=== PATIENT | male | born 1940 | race Two or more races ===

== ENCOUNTER 2018-06-06 18:32 | Emergency (ER) | payer OTHER, MEDICAID ==
[~2018-06-06] VITALS: Ht 162.6 cm; Wt 81.6 kg
[~2018-06-06 18:32] MED LIST: LONOX PO; Lisinopril PO; PAROXETINE PO; amlodipine PO; furosemide PO; gabapentin PO; tramadol PO
[2018-06-06 19:53] VITALS: BP 142/80
== END 2018-06-06 19:58 | disposition home or self-care (01) ==
LOC: EDBD 18:32 → EDUNIT# 18:32 → ER 18:43
DX: F10.129 Alcohol abuse with intoxication, unspecified (principal); E11.9 Type 2 diabetes mellitus without complications; E78.5 Hyperlipidemia, unspecified; I10 Essential (primary) hypertension; R41.82 Altered mental status, unspecified; I25.2 Old myocardial infarction; I48.91 Unspecified atrial fibrillation; Z88.0 Allergy status to penicillin; Z88.6 Allergy status to analgesic agent
CPT/HCPCS: 36415; 70450; 80320

== ENCOUNTER 2021-02-28 19:43 | Inpatient (IN) | payer OTHER, MEDICAID ==
[~2021-02-28] VITALS: Ht 165.1 cm; Wt 73.0 kg
[2021-02-28] MEDS ORDERED: ONDANSETRON HCL 4 MG/2 ML VIAL IV ONE (20:30)
[2021-02-28 21:03] LABS: Basophils # (auto) 0 10 ^3/uL (0-0.2); Eosinophils # (auto) 0 10 ^3/uL (0-0.8); Hemoglobin 14.3 g/dL (13.5-17.5); Monocytes # (auto) 0.3 10 ^3/uL (0-1.3); Neutrophils # (auto) 2.7 10 ^3/uL (1.6-8.6); Nucleated Red Blood Cells % 0.2 %; White Blood Cell 4.8 10^3/uL (4.4-10.8)
[2021-02-28 21:05] LABS: Basophils % (auto) 0.6 % (0.0-2.0); Hematocrit 41.4 % (41.0-53.0); Lymphocytes # (auto) 1.8 10 ^3/uL (0.4-5.4); Lymphocytes % (auto) 36.7 % (10.0-50.0); Mean Corpuscular Hemoglobin 35.9 pg (28.0-32.0); Mean Corpuscular Hgb Conc. 34.5 g/dL (32.0-36.0); Mean Corpuscular Volume 103.9 fL (80.0-100.0); Neutrophils % (auto) 55.7 % (37.0-80.0); Red Blood Cells 3.98 10^6/uL (4.5-5.90); Red Cell Distribution Width 14.8 % (11.8-14.3)
[2021-02-28 21:20] LABS: Albumin 3.2 g/dL (3.4-5.0); Anion Gap 16 (5-15); Blood Urea Nitrogen 6 mg/dL (7-18); Calcium 7.1 mg/dL (8.5-10.1); Carbon Dioxide 20 mmol/L (21-32); Chloride 102 mmol/L (98-107); Glucose 145 mg/dL (74-106); Magnesium 1.1 mg/dL (1.6-2.6); Potassium 3.7 mmol/L (3.5-5.1); Sodium 138 mmol/L (136-145)
[2021-02-28 21:22] LABS: Lactic Acid w/Reflex 6.9 mmol/L (0.4-2.0)
[2021-02-28 21:26] LABS: Alanine Aminotransferase 90 U/L (16-61); Alkaline Phosphatase 143 U/L (45-117); Aspartate Aminotransferase 176 U/L (15-37); BUN/Creatinine Ratio 6.1; Bilirubin, Total 0.8 mg/dL (0.2-1.0); GFR African American 94 mL/min; GFR Non-African American 78 mL/min; INR 1.08 (0.9-1.15); Total Protein 6.9 g/dL (6.4-8.2)
[2021-02-28] MEDS ORDERED: SODIUM CHLORIDE 0.9% 1,000 ML IV ONE ×2 (22:00→23:45)
[2021-02-28] MEDS ORDERED: PIPERACILLIN-TAZOB 3.375GM 100 ML IV ONE (22:00)
[2021-02-28] MEDS ORDERED: VANCOMYCIN 1GM/250ML 250 ML IV ONE (22:00)
[2021-02-28] MEDS ORDERED: IOHEXOL 300 MG/ML 100ML BOTTLE IJ ONE (22:09)
[2021-02-28] MEDS ORDERED: fentaNYL CITRATE 100 MCG/2 ML VL IV ONE (22:30)
[2021-02-28] MEDS ORDERED: METOCLOPRAMIDE HCL 5MG/ml INJ 2ml VIAL IV ONE (22:30)
[2021-02-28] MEDS ORDERED: DexAMETHasone INJECTION 10 MG in D5W 5% 50 ML IV ONE (22:45)
[2021-02-28] MEDS ORDERED: ONDANSETRON HCL 4 MG/2 ML VIAL IV PRN (23:45)
[2021-02-28] MEDS ORDERED: DEXTROSE (50%) 50ML SYRG IV ONE (23:45)
[2021-03-01] VITALS (7 sets, daily range): BP systolic 131–150; BP diastolic 66–90
[2021-03-01] MEDS: ACCU-CHEK COMFORT CURVE STRIP VI SCH ×5 (00:23→20:08)
[2021-03-01] MEDS ORDERED: DexAMETHasone SOD PHOS 4 MG/1ML SDV INJ ONE (00:36)
[2021-03-01] MEDS: InsuLIN REG 1unit/0.01ml Soln (100units/ml) SC SCH ×5 (02:49→20:08)
[2021-03-01] MEDS: MAGNESIUM SULFATE 1GM/100ML 100 ML IV SCH ×2 (03:34→04:44)
[2021-03-01] MEDS: ONDANSETRON HCL 4 MG/2 ML VIAL IV PRN ×4 (03:52→18:41)
[2021-03-01 05:36] LABS: Albumin 2.8 g/dL (3.4-5.0); Calcium 6.7 mg/dL (8.5-10.1); Magnesium 1.5 mg/dL (1.6-2.6); Potassium 3.8 mmol/L (3.5-5.1)
[2021-03-01 05:40] LABS: BUN/Creatinine Ratio 6.3; Bilirubin, Total 1.1 mg/dL (0.2-1.0); Total Protein 6.2 g/dL (6.4-8.2)
[2021-03-01 07:26] LABS: Basophils # (auto) 0 10 ^3/uL (0-0.2); Eosinophils # (auto) 0 10 ^3/uL (0-0.8); Hematocrit 37.8 % (41.0-53.0); Lymphocytes # (auto) 0.4 10 ^3/uL (0.4-5.4); Monocytes # (auto) 0.1 10 ^3/uL (0-1.3); Monocytes % (auto) 0.7 % (0.0-12.0); Nucleated Red Blood Cells % 0.1 %
[2021-03-01 07:27] LABS: Basophils % (auto) 0.1 % (0.0-2.0); Lymphocytes % (auto) 4.9 % (10.0-50.0); Mean Corpuscular Hgb Conc. 34.5 g/dL (32.0-36.0); Mean Corpuscular Volume 104.2 fL (80.0-100.0); Neutrophils # (auto) 7.2 10 ^3/uL (1.6-8.6); Neutrophils % (auto) 94.3 % (37.0-80.0); Red Blood Cells 3.63 10^6/uL (4.5-5.90); Red Cell Distribution Width 14.7 % (11.8-14.3); White Blood Cell 7.6 10^3/uL (4.4-10.8)
[2021-03-01] MEDS ORDERED: METF-370 PO (09:35)
[2021-03-01] MEDS ORDERED: GABA100C9 PO (09:35)
[2021-03-01] MEDS ORDERED: ASPI1TAB19 PO (09:41)
[2021-03-01] MEDS: ASPirin-EC 81 mg tab PO SCH (09:42)
[2021-03-01] MEDS: ENOXAPARIN SOD 40 MG/0.4 ML SYRINGE SC SCH (09:42)
[2021-03-01] MEDS: SODIUM CHLORIDE 0.9% 1,000 ML IV SCH ×2 (12:00→21:07)
[2021-03-01] MEDS ORDERED: SODIUM CHLORIDE 0.9% 2,000 ML IV ONE (12:00)
[2021-03-01] MEDS ORDERED: ALPRAZolam 0.25 MG TAB PO ONE (13:15)
[2021-03-01 16:21] LABS: Lactic Acid w/Reflex 4.4 mmol/L (0.4-2.0)
[2021-03-01] MEDS: metroNIDAZOLE 500MG/100ML 100 ML IV SCH ×2 (16:58→21:07)
[2021-03-01] MEDS: SUCRALFATE 1 GM/10 ML ORAL SUSP PO SCH ×2 (16:58→20:07)
[2021-03-01] MEDS: levoFLOXacin 500MG 100 ML IV SCH (18:03)
[2021-03-01 18:28] LABS: Urine Bacteria NONE SEEN /hpf (None Seen); Urine Blood Negative /uL (Negative); Urine Specific Gravity 1.007 (1.001-1.035); Urine WBC <1 /hpf (0 - 3)
[2021-03-01] MEDS: PANTOPRAZOLE 40 MG TAB PO SCH (20:08)
[2021-03-02 05:00] VITALS: BP 122/56
[2021-03-02] MEDS: SUCRALFATE 1 GM/10 ML ORAL SUSP PO SCH ×4 (05:45→21:57)
[2021-03-02] MEDS: InsuLIN REG 1unit/0.01ml Soln (100units/ml) SC SCH ×4 (05:45→22:00)
[2021-03-02] MEDS: ACCU-CHEK COMFORT CURVE STRIP VI SCH ×4 (05:46→22:10)
[2021-03-02] MEDS: metroNIDAZOLE 500MG/100ML 100 ML IV SCH ×3 (06:00→21:57)
[2021-03-02 07:29] LABS: Basophils # (auto) 0 10 ^3/uL (0-0.2); Basophils % (auto) 0.1 % (0.0-2.0); Eosinophils # (auto) 0 10 ^3/uL (0-0.8); Nucleated Red Blood Cells % 0.2 %; White Blood Cell 5.5 10^3/uL (4.4-10.8)
[2021-03-02 07:33] LABS: Hematocrit 35.8 % (41.0-53.0); Hemoglobin 12.6 g/dL (13.5-17.5); Lymphocytes # (auto) 1.1 10 ^3/uL (0.4-5.4); Lymphocytes % (auto) 20.5 % (10.0-50.0); Mean Corpuscular Hemoglobin 36.6 pg (28.0-32.0); Mean Corpuscular Hgb Conc. 35.1 g/dL (32.0-36.0); Mean Corpuscular Volume 104.4 fL (80.0-100.0); Monocytes # (auto) 0.4 10 ^3/uL (0-1.3); Monocytes % (auto) 7.1 % (0.0-12.0); Neutrophils % (auto) 72.3 % (37.0-80.0); Red Blood Cells 3.43 10^6/uL (4.5-5.90); Red Cell Distribution Width 14.5 % (11.8-14.3)
[2021-03-02 07:56] LABS: Calcium 6.5 mg/dL (8.5-10.1); Potassium 3.4 mmol/L (3.5-5.1)
[2021-03-02 08:00] VITALS: BP 117/73
[2021-03-02 08:00] LABS: BUN/Creatinine Ratio 9.2; Bilirubin, Total 1.5 mg/dL (0.2-1.0); Total Protein 6.5 g/dL (6.4-8.2)
[2021-03-02] MEDS: SODIUM CHLORIDE 0.9% 1,000 ML IV SCH ×2 (08:49→18:30)
[2021-03-02] MEDS: levoFLOXacin 500MG 100 ML IV SCH (08:49)
[2021-03-02] MEDS: ASPirin-EC 81 mg tab PO SCH (08:50)
[2021-03-02] MEDS: PANTOPRAZOLE 40 MG TAB PO SCH ×2 (08:50→21:57)
[2021-03-02] MEDS: ENOXAPARIN SOD 40 MG/0.4 ML SYRINGE SC SCH (08:50)
[2021-03-02 09:00] VITALS: BP 117/73
[2021-03-02 13:00] VITALS: BP 130/67
[2021-03-02 17:00] VITALS: BP 143/77
[2021-03-02 22:02] VITALS: BP 136/77
[2021-03-03] MEDS: SODIUM CHLORIDE 0.9% 1,000 ML IV SCH (04:00)
[2021-03-03 04:50] VITALS: BP 128/72
[2021-03-03] MEDS: metroNIDAZOLE 500MG/100ML 100 ML IV SCH (05:34)
[2021-03-03] MEDS: ACCU-CHEK COMFORT CURVE STRIP VI SCH ×2 (06:14→11:30)
[2021-03-03] MEDS: SUCRALFATE 1 GM/10 ML ORAL SUSP PO SCH (06:14)
[2021-03-03] MEDS: InsuLIN REG 1unit/0.01ml Soln (100units/ml) SC SCH ×2 (06:14→11:30)
[2021-03-03 06:59] LABS: INR 1.17 (0.9-1.15); Partial Thromboplastin Time 29.4 sec (23.0-31.2)
[2021-03-03 07:07] LABS: Potassium 3.5 mmol/L (3.5-5.1)
[2021-03-03 07:17] LABS: Albumin 2.5 g/dL (3.4-5.0); BUN/Creatinine Ratio 14.5; Calcium 6.5 mg/dL (8.5-10.1); Total Protein 5.2 g/dL (6.4-8.2)
[2021-03-03 08:00] VITALS: BP 117/73
[2021-03-03 08:30] VITALS: BP 135/71
[2021-03-03] MEDS ORDERED: MIDAZOLAM HCL 5 MG/ML-1ML VIAL ONE (09:08)
[2021-03-03] MEDS ORDERED: LIDOCAINE VISCOUS 2% 15ML UD ONE (09:08)
[2021-03-03] MEDS ORDERED: SODIUM CHLORIDE LOCK 10 ML ONE (09:08)
[2021-03-03] MEDS ORDERED: fentaNYL CITRATE 100 MCG/2 ML VL ONE (09:09)
[2021-03-03] MEDS ORDERED: diphenhdrAMINE HCL 50 MG/1 ML VL ONE (09:09)
[2021-03-03] MEDS: levoFLOXacin 500MG 100 ML IV SCH (09:12)
[2021-03-03] MEDS: PANTOPRAZOLE 40 MG TAB PO SCH (09:18)
[2021-03-03] MEDS: ASPirin-EC 81 mg tab PO SCH (09:18)
[2021-03-03] MEDS: ENOXAPARIN SOD 40 MG/0.4 ML SYRINGE SC SCH (10:00)
[2021-03-03 12:30] VITALS: BP 135/68
[2021-03-03] MEDS ORDERED: SUCR1SUS10 PO (12:59)
[2021-03-03] MEDS ORDERED: PANT40T PO (12:59)
[2021-03-03 17:00] VITALS: BP 118/65
== END 2021-03-03 17:00 | disposition home health service (06) | DRG 392 ==
LOC: EDBD 19:43 → ER 19:48 → TELE 03-01 00:10 → TELE-WESTW 03-01 01:50
PROVIDERS: ADMIT Hospitalist; ATTEND Hospitalist
PROC: 0DB68ZX Excision of Stomach, Via Natural or Artificial Opening Endoscopic, Diagnostic (ICD-10-PCS; principal; 2021-03-03 11:47)
DX: K29.70 Gastritis, unspecified, without bleeding (principal); E87.2 Acidosis; K29.80 Duodenitis without bleeding; K52.9 Noninfective gastroenteritis and colitis, unspecified; K80.20 Calculus of gallbladder without cholecystitis without obstruction; I10 Essential (primary) hypertension; E11.40 Type 2 diabetes mellitus with diabetic neuropathy, unspecified; F41.9 Anxiety disorder, unspecified; K44.9 Diaphragmatic hernia without obstruction or gangrene; K57.30 Diverticulosis of large intestine without perforation or abscess without bleeding; Z20.822 Contact with and (suspected) exposure to COVID-19; F32.9 Major depressive disorder, single episode, unspecified; E86.0 Dehydration; E11.9 Type 2 diabetes mellitus without complications; K76.0 Fatty (change of) liver, not elsewhere classified; Z80.42 Family history of malignant neoplasm of prostate; Z82.0 Family history of epilepsy and other diseases of the nervous system; Z86.73 Personal history of transient ischemic attack (TIA), and cerebral infarction without residual deficits; I25.2 Old myocardial infarction; Z88.0 Allergy status to penicillin; Z88.5 Allergy status to narcotic agent
CPT/HCPCS: 36415; 43239; 70360; 70491; 71045; 74176; 76705; 78226; 80053; 81001; 82962; 83036; 83605; 83735; 83880; 84484; 85025; 85610; 85730; 86850; 86900; 86901; 87040; 87070; 87426; 87880; 93005; 93306; 96361; 96365; 96367; 96375; G0378; J1100; J1815; J1956; J2250; J2405; J3490; J7060

== ENCOUNTER 2021-04-29 17:46 | Inpatient (IN) | payer OTHER, MEDICAID ==
[~2021-04-29] VITALS: Ht 167.6 cm; Wt 72.6 kg
[~2021-04-29 17:46] MED LIST changes: +ASPI1TAB19 PO; +GABA100C9 PO; -LONOX PO; -Lisinopril PO; +METF-370 PO; +PANT40T PO; -PAROXETINE PO; +SUCR1SUS10 PO; -amlodipine PO; -furosemide PO; -gabapentin PO; -tramadol PO
[2021-04-29] MEDS ORDERED: IBUPROFEN 600 MG TAB PO ONE (18:30)
[2021-04-29 18:42] LABS: Basophils # (auto) 0.1 10 ^3/uL (0-0.2); Eosinophils # (auto) 0.2 10 ^3/uL (0-0.8); Monocytes # (auto) 0.5 10 ^3/uL (0-1.3)
[2021-04-29 18:44] LABS: Basophils % (auto) 0.9 % (0.0-2.0); Eosinophils % (auto) 2.7 % (0.0-7.0); Hemoglobin 11.9 g/dL (13.5-17.5); Lymphocytes % (auto) 49.9 % (10.0-50.0); Mean Corpuscular Hemoglobin 34.2 pg (28.0-32.0); Mean Corpuscular Hgb Conc. 33.1 g/dL (32.0-36.0); Mean Corpuscular Volume 103.2 fL (80.0-100.0); Monocytes % (auto) 7.8 % (0.0-12.0); Neutrophils # (auto) 2.3 10 ^3/uL (1.6-8.6); Neutrophils % (auto) 38.7 % (37.0-80.0); Red Blood Cells 3.49 10^6/uL (4.5-5.90); Red Cell Distribution Width 14.8 % (11.8-14.3)
[2021-04-29 19:03] LABS: Partial Thromboplastin Time 25.4 sec (23.6-33.0)
[2021-04-29 19:07] LABS: Albumin 2.4 g/dL (3.4-5.0); Anion Gap 10 (5-15); Blood Urea Nitrogen 8 mg/dL (7-18); Calcium 7.6 mg/dL (8.5-10.1); Carbon Dioxide 24 mmol/L (21-32); Chloride 108 mmol/L (98-107); Glucose 88 mg/dL (74-106); Magnesium 1.4 mg/dL (1.6-2.6); Potassium 3.6 mmol/L (3.5-5.1); Sodium 142 mmol/L (136-145)
[2021-04-29 19:09] LABS: Alanine Aminotransferase 32 U/L (16-61); Aspartate Aminotransferase 52 U/L (15-37); BUN/Creatinine Ratio 8.3; GFR African American 97 mL/min; GFR Non-African American 80 mL/min
[2021-04-29 19:12] LABS: Alkaline Phosphatase 94 U/L (45-117); Bilirubin, Total 0.3 mg/dL (0.2-1.0); Total Protein 6.2 g/dL (6.4-8.2)
[2021-04-29 20:07] LABS: Urine Bacteria NONE SEEN /hpf (None Seen); Urine Blood Negative /uL (Negative); Urine Specific Gravity 1.004 (1.001-1.035)
[2021-04-29 20:13] LABS: Urine WBC None Seen /hpf (0 - 3)
[2021-04-29] MEDS ORDERED: IOHEXOL 350 MG/ML 100ML IJ ONE (20:30)
[2021-04-29] MEDS ORDERED: HYDROcodone-ACET 5/325MG TAB PO PRN (23:15)
[2021-04-29] MEDS ORDERED: DEXTROSE (50%) 50ML SYRG IV PRN (23:15)
[2021-04-29] MEDS ORDERED: MAGNESIUM SULFATE 1GM/100ML 100 ML IV ONE (23:15)
[2021-04-29] MEDS ORDERED: ALBUMIN 25% 50 ML IV ONE (23:15)
[2021-04-29] MEDS ORDERED: DOCUSATE SOD 100 MG CAP PO PRN (23:15)
[2021-04-29] MEDS ORDERED: ACETAMINOPHEN 325 MG TAB PO PRN (23:15)
[2021-04-29] MEDS ORDERED: ONDANSETRON HCL 4 MG/2 ML VIAL IV PRN (23:15)
[2021-04-29] MEDS ORDERED: NITROGLYCERIN 0.4 MG SL TAB SL PRN (23:15)
[2021-04-30 02:03] VITALS: BP 139/76
[2021-04-30 05:00] VITALS: BP 145/75
[2021-04-30] MEDS ORDERED: SODIUM CHLOR 0.9% PF (SALINE LOCK) 10ML VIAL/SYR IV SCH (06:00)
[2021-04-30] MEDS ORDERED: InsuLIN REG 1unit/0.01ml Soln (100units/ml) SC SCH (07:00)
[2021-04-30] MEDS ORDERED: ACCU-CHEK COMFORT CURVE STRIP VI SCH (07:00)
[2021-04-30 08:42] LABS: Basophils # (auto) 0.1 10 ^3/uL (0-0.2); Basophils % (auto) 1.1 % (0.0-2.0); Hemoglobin 12.9 g/dL (13.5-17.5); Lymphocytes # (auto) 1.8 10 ^3/uL (0.4-5.4); Monocytes # (auto) 0.6 10 ^3/uL (0-1.3); Neutrophils # (auto) 5.9 10 ^3/uL (1.6-8.6); Nucleated Red Blood Cells % 0.1 %; White Blood Cell 8.5 10^3/uL (4.4-10.8)
[2021-04-30 08:46] LABS: Eosinophils # (auto) 0.1 10 ^3/uL (0-0.8); Eosinophils % (auto) 0.7 % (0.0-7.0); Hematocrit 37.8 % (41.0-53.0); Lymphocytes % (auto) 21.7 % (10.0-50.0); Mean Corpuscular Hemoglobin 34.7 pg (28.0-32.0); Mean Corpuscular Volume 101.9 fL (80.0-100.0); Neutrophils % (auto) 69.5 % (37.0-80.0); Red Blood Cells 3.71 10^6/uL (4.5-5.90); Red Cell Distribution Width 14.6 % (11.8-14.3)
[2021-04-30 08:58] LABS: Albumin 3.4 g/dL (3.4-5.0); BUN/Creatinine Ratio 8.9; Calcium 8.3 mg/dL (8.5-10.1); Potassium 3.9 mmol/L (3.5-5.1)
[2021-04-30 09:01] LABS: Bilirubin, Total 0.9 mg/dL (0.2-1.0); Total Protein 7.8 g/dL (6.4-8.2)
[2021-04-30] MEDS ORDERED: MULTIPLE VITAMIN TAB PO SCH (10:00)
[2021-04-30] MEDS ORDERED: FAMOTIDINE (10MG/ML) 2ML VL IV SCH (10:00)
[2021-04-30] MEDS ORDERED: ASCORBIC ACID 500 MG TAB PO SCH (10:00)
[2021-04-30] MEDS ORDERED: ENOXAPARIN SOD 30 MG/0.3 ML SYRINGE SC SCH (10:00)
[2021-04-30] MEDS ORDERED: ASPirin 81 mg TAB PO SCH (10:00)
== END 2021-04-30 09:12 | disposition left against medical advice (07) | DRG 312 ==
LOC: EDUNIT# 17:46 → ER 17:46 → EDBD 17:46 → TELE 23:11 → TELE-CENTR 04-30 01:31
PROVIDERS: ADMIT Nurse Practitioner Family; ATTEND Nurse Practitioner Family
DX: R55 Syncope and collapse (principal); R79.89 Other specified abnormal findings of blood chemistry; Z20.822 Contact with and (suspected) exposure to COVID-19; E11.9 Type 2 diabetes mellitus without complications; E78.00 Pure hypercholesterolemia, unspecified; E78.5 Hyperlipidemia, unspecified; E83.42 Hypomagnesemia; E88.09 Other disorders of plasma-protein metabolism, not elsewhere classified; F41.9 Anxiety disorder, unspecified; I48.91 Unspecified atrial fibrillation; Z53.29 Procedure and treatment not carried out because of patient's decision for other reasons; I10 Essential (primary) hypertension; I25.2 Old myocardial infarction; Z80.42 Family history of malignant neoplasm of prostate; Z82.0 Family history of epilepsy and other diseases of the nervous system; Z88.0 Allergy status to penicillin; Z88.6 Allergy status to analgesic agent
CPT/HCPCS: 36415; 70450; 71250; 71275; 72125; 72192; 74176; 80053; 81001; 82962; 83036; 83735; 83880; 84484; 85025; 85379; 85610; 85730; 87426; 93005; 96365; 96367; G0378; J2405

== ENCOUNTER 2021-08-23 10:25 | Emergency (ER) | payer OTHER, MEDICAID | END 2021-08-23 11:57 | disposition left against medical advice (07) | LOC: ER 10:25 → EDBD 10:25 → ER 11:57 | DX: M79.605 Pain in left leg (principal); Z53.21 Procedure and treatment not carried out due to patient leaving prior to being seen by health care provider ==

== ENCOUNTER 2021-08-30 18:31 | Emergency (ER) | payer OTHER, MEDICAID ==
[~2021-08-30] VITALS: Ht 154.9 cm; Wt 63.5 kg
[2021-08-30 18:35] VITALS: BP 120/78
== END 2021-08-31 00:55 | disposition left against medical advice (07) ==
LOC: EDBD 18:31 → ER 18:33
DX: S01.01XA Laceration without foreign body of scalp, initial encounter (principal); M54.2 Cervicalgia; Z53.21 Procedure and treatment not carried out due to patient leaving prior to being seen by health care provider; W19.XXXA Unspecified fall, initial encounter; Y93.89 Activity, other specified; Y92.89 Other specified places as the place of occurrence of the external cause; Y99.8 Other external cause status
CPT/HCPCS: 70450; 72125